=== PATIENT | female | born 1940 | race Caucasian/White ===

== ENCOUNTER 2018-04-07 06:57 | Inpatient (IN) | payer MEDICARE, OTHER | END 2018-04-10 15:30 | LOC: ER 06:57 → ED HOLD 09:12 → ORTHO 4S 11:45 | DX: S82.142A Displaced bicondylar fracture of left tibia, initial encounter for closed fracture (principal); N39.0 Urinary tract infection, site not specified; E53.8 Deficiency of other specified B group vitamins ==

== ENCOUNTER 2018-04-28 04:32 | Emergency (ER) | payer MEDICARE, OTHER ==
[~2018-04-28] VITALS: Ht 162.6 cm; Wt 70.0 kg
[~2018-04-28 04:32] MED LIST: ALLO100T PO; AMLO2.5T2 PO; APIX5TAB3 PO; ATI1T PO; ATOR10TA87 PO; CEPH500C2 PO; DILT240C52 PO; EZET10TA13 PO; FURO-150 PO
--- NOTE | 2018-04-28 04:44 | NUR ---
ELYSIA bandage noted to left ankle. Pt states that she fell and fractured left ankle approx two months ago.
[2018-04-28] MEDS ORDERED: normal saline 1000ml 1,000 ML IV ONE ×2 (04:45→07:05)
[2018-04-28 05:29] LABS: BASOPHILS # (AUTO) 0.1 X10'3 (0-0.2); BASOPHILS % (AUTO) 0.6 % (0-1); EOSINOPHILS # (AUTO) 0.1 X10'3 (0-0.9); EOSINOPHILS % (AUTO) 0.9 % (0-6); HEMATOCRIT 35.6 % (35.0-45.0); HEMOGLOBIN 11.4 g/dl (12.0-16.0); LYMPHOCYTES # (AUTO) 1.1 X10'3 (1.1-4.8); LYMPHOCYTES % (AUTO) 14.1 % (21-51); MEAN CORPUSCULAR HEMOGLOBIN 33.6 PG (27.0-31.0); MEAN CORPUSCULAR HGB CONC 32.1 g/dL (33.0-36.5); MEAN CORPUSCULAR VOLUME 104.7 FL (78-98); MEAN PLATELET VOLUME 7.5 FL (7.4-10.4); MONOCYTES # (AUTO) 0.8 X10'3 (0-0.9); MONOCYTES % (AUTO) 10.1 % (2-12); NEUTROPHILS # (AUTO) 5.9 X10'3 (1.8-7.7); NEUTROPHILS % (AUTO) 74.3 % (42-75); PLATELET COUNT 422 X10'3 (140-440); RED CELL DISTRIBUTION WIDTH 15.7 % (11.5-14.5); WHITE BLOOD COUNT 7.9 X10'3 (4.5-11.0)
[2018-04-28 05:43] LABS: INR 1.3 INR; PARTIAL THROMBOPLASTIN TIME 37 SECONDS (22-32); PROTHROMBIN TIME 12.7 SECONDS (9.0-12.0)
[2018-04-28 05:44] LABS: ALANINE AMINOTRANSFERASE 34 U/L (12-78); ALBUMIN 2.4 G/DL (3.4-5.0); ALBUMIN/GLOBULIN RATIO 0.6 (1.1-1.5); ALKALINE PHOSPHATASE 180 IU/L (46-116); ANION GAP 9 (8-16); ASPARTATE AMINO TRANSFERASE 47 U/L (10-37); BILIRUBIN,TOTAL 0.6 MG/DL (0.1-1.0); BLOOD UREA NITROGEN 16 MG/DL (7-18); BUN/CREATININE RATIO 17.4 (6.6-38.0); CALCIUM 9.2 MG/DL (8.5-10.1); CHLORIDE 102 MMOL/L (99-107); CREATININE 0.92 MG/DL (0.40-0.90); GLUCOSE 87 MG/DL (70-104); POTASSIUM 3.1 MMOL/L (3.5-5.1); SODIUM 141 MMOL/L (135-145); TOTAL CARBON DIOXIDE 30.5 MMOL/L (24-32); TOTAL PROTEIN 6.3 G/DL (6.4-8.2); eGFR 59 ML/MIN
[2018-04-28] MEDS ORDERED: lactulose 20gm/30ml cup PO ONE (07:05)
[2018-04-28 07:16] LABS: CLARITY,URINE CLEAR (Clear); COLOR,URINE YELLOW (Yellow); GLUCOSE, URINE NEGATIVE (Neg); KETONES,URINE 15 mg/dl (Neg); LEUKOCYTE ESTERASE ,URINE NEGATIVE (Neg); NITRITES, URINE NEGATIVE (Neg); OCCULT BLOOD,URINE NEGATIVE (Neg); PH,URINE 6.5 (4.8-8.0); PROTEIN,URINE NEGATIVE (Neg); UROBILINOGEN,URINE 0.2 E.U/dL (0.2-1.0)
[2018-04-28 07:21] LABS: UA COLLECTION TYPE STRAIGHT CATH
[2018-04-28 07:40] VITALS: BP 133/78
--- NOTE | 2018-04-28 08:38 | NUR ---
PT SHLOMO SAHNI [phone] PT FAMILIA MAY [phone]
== END 2018-04-28 13:04 ==
LOC: ER 04:33
DX: K59.00 Constipation, unspecified (principal); R10.9 Unspecified abdominal pain; K64.4 Residual hemorrhoidal skin tags; I25.10 Atherosclerotic heart disease of native coronary artery without angina pectoris; I10 Essential (primary) hypertension; M10.9 Gout, unspecified; Z79.899 Other long term (current) drug therapy
CPT/HCPCS: 36415; 71045; 74176; 80053; 81003; 84145; 85025; 85610; 85730; 86885; 86900; 86901; 93005; 99284; J7030

== ENCOUNTER 2023-09-11 20:10 | Inpatient (IN) | payer MEDICARE, OTHER ==
[~2023-09-11] VITALS: Ht 162.6 cm; Wt 74.0 kg
[~2023-09-11 20:10] MED LIST changes: -ALLO100T PO; +ALLO100T25 PO; -AMLO2.5T2 PO; -APIX5TAB3 PO; -ATI1T PO; -ATOR10TA87 PO; +ATOR40TA71 PO; -CEPH500C2 PO; +CLOP75TA34 PO; +COR3.125T PO; -DILT240C52 PO; -EZET10TA13 PO; -FURO-150 PO
[2023-09-11 20:49] LABS: BASOPHILS % (AUTO) 0.5 % (0-1); EOSINOPHILS # (AUTO) 0.1 X10'3 (0-0.9); EOSINOPHILS % (AUTO) 0.8 % (0-6); HEMATOCRIT 34.8 % (35.0-45.0); HEMOGLOBIN 10.9 g/dl (12.0-16.0); LYMPHOCYTES # (AUTO) 0.8 X10'3 (1.1-4.8); LYMPHOCYTES % (AUTO) 8.9 % (21-51); MEAN CORPUSCULAR HEMOGLOBIN 34.5 PG (27.0-31.0); MEAN CORPUSCULAR HGB CONC 31.3 g/dL (33.0-36.5); MEAN PLATELET VOLUME 8.1 FL (7.4-10.4); MONOCYTES # (AUTO) 0.8 X10'3 (0-0.9); MONOCYTES % (AUTO) 9.3 % (2-12); NEUTROPHILS # (AUTO) 6.8 X10'3 (1.8-7.7); NEUTROPHILS % (AUTO) 80.5 % (42-75); PLATELET COUNT 157 X10'3 (140-440); RED BLOOD COUNT 3.16 X10'6 (4.20-5.60); RED CELL DISTRIBUTION WIDTH 27.2 % (11.5-14.5); WHITE BLOOD COUNT 8.5 X10'3 (4.5-11.0)
[2023-09-11 20:54] LABS: ANION GAP 6 (8-16); BLOOD UREA NITROGEN 48 MG/DL (7-18); BUN/CREATININE RATIO 36.4 (10.0-20.0); CALCIUM 9.1 MG/DL (8.5-10.1); CHLORIDE 110 MMOL/L (99-107); CREATININE 1.32 MG/DL (0.40-0.90); GLUCOSE 110 MG/DL (70-104); MAGNESIUM 2.5 MG/DL (1.5-2.4); SODIUM 142 MMOL/L (135-145); TOTAL CARBON DIOXIDE 25.7 MMOL/L (24-32); eCRCL 27 ML/MIN; eGFR 38 ML/MIN
[2023-09-11 20:55] LABS: POTASSIUM 5.2 MMOL/L (3.5-5.1)
[2023-09-11 21:21] LABS: ANISOCYTOSIS 3+; PLATELET ESTIMATE NORMAL
[2023-09-11 21:25] LABS: POLYCHROMASIA FEW; SCHISTOCYTES FEW; TEAR DROP CELLS FEW
[2023-09-11 21:30] LABS: PRO BRAIN NATRIURETIC PEPTIDE > 30000 PG/ML (0-450)
[2023-09-11] MEDS: furosemide 10 MG/1 ML 10ml inj IV ONE (22:09)
[2023-09-11] MEDS ORDERED: EZET10TA6 PO (22:15)
[2023-09-11] MEDS ORDERED: DAPA10TA PO (22:16)
[2023-09-11] MEDS ORDERED: LANS30TA10 PO (22:17)
[2023-09-11] MEDS ORDERED: ONDA-243 PO (22:17)
[2023-09-11] MEDS ORDERED: SENN-302 PO (22:18)
[2023-09-11] MEDS ORDERED: ALLO300T8 PO (22:19)
[2023-09-11] MEDS ORDERED: DILT240C47 PO (22:19)
[2023-09-11] MEDS ORDERED: METO-395 PO (22:19)
[2023-09-11] MEDS ORDERED: CLOP75TA34 PO (22:20)
[2023-09-11] MEDS ORDERED: CARV3.12 PO (22:21)
[2023-09-11] MEDS ORDERED: ATOR40TA PO (22:23)
[2023-09-11] MEDS ORDERED: ALLO100T PO (22:23)
[2023-09-12] VITALS (8 sets, daily range): BP systolic 91–126; BP diastolic 39–76; PULSE 71–105; RESP 15–28; TEMP 96.8–98; O2SAT 93–100
[2023-09-12] MEDS ORDERED: morphine 2 MG/ML inj. syringe IV PRN (00:30)
[2023-09-12] MEDS ORDERED: magnesium sulf-water 4G/100mL 100 ML IV PRN (00:30)
[2023-09-12] MEDS ORDERED: mag hydrox/Alum hydrox/simeth 30ml oral suspension PO PRN (00:30)
[2023-09-12] MEDS ORDERED: magnesium Cl slow-release 64mg tablet PO PRN (00:30)
[2023-09-12] MEDS ORDERED: magnesium sulf-water 2g/50mL 50 ML IV PRN (00:30)
[2023-09-12] MEDS ORDERED: potassium Cl 20 mEq SR tablet PO PRN ×2 (00:30)
[2023-09-12] MEDS ORDERED: potassium Cl 40MEQ/1/2NS 520ml 520 ML IV PRN (00:30)
[2023-09-12] MEDS ORDERED: acetaminophen 325mg tablet PO PRN (00:30)
[2023-09-12] MEDS ORDERED: ipratropium/albuterol 3ml nebule NEB PRN (00:30)
[2023-09-12] MEDS: furosemide 10 MG/1 ML 10ml inj IV ONE (01:23)
[2023-09-12] MEDS: CefTRIAXone/D5W-Rocephin 1gm 50 ML IV SCH (01:23)
[2023-09-12] MEDS: guaiFENesin ER 600mg tablet PO SCH (01:23)
[2023-09-12 01:26] LABS: THYROID STIMULATING HORMONE 5.96 ulU/ml (0.34-4.50)
[2023-09-12 01:52] LABS: BILIRUBIN,URINE NEGATIVE (Neg); CLARITY,URINE CLEAR (Clear); COLOR,URINE YELLOW (Yellow); GLUCOSE, URINE 100 mg/dl (Neg); KETONES,URINE NEGATIVE (Neg); LEUKOCYTE ESTERASE ,URINE TRACE (Neg); OCCULT BLOOD,URINE NEGATIVE (Neg); PH,URINE 5.5 (4.8-8.0); PROTEIN,URINE NEGATIVE (Neg); UROBILINOGEN,URINE 0.2 E.U/dL (0.2-1.0)
[2023-09-12 02:03] LABS: NITRITES, URINE NEGATIVE (Neg); UA COLLECTION TYPE CLN CATCH MIDSTREAM
[2023-09-12 02:07] LABS: BACTERIA,URINE FEW /HPF (Neg); MUCUS STRANDS MODERATE /LPF (Neg); RBC,URINE 0-2 /HPF (0-2); SQUAMOUS EPITHELIAL CELL,UR FEW /LPF (FEW)
[2023-09-12 02:08] LABS: TRANSITIONAL EPI CELLS,URINE MODERATE /HPF; YEAST FEW /HPF (NEGATIVE)
[2023-09-12] MEDS: azithromycin/NS 500mg/250ml 250 ML IV SCH (02:11)
[2023-09-12] MEDS ORDERED: metoprolol succinate 25mg (24-HOUR) SR. Tablet PO SCH (08:00)
[2023-09-12] MEDS: MULTIVIT-MIN/FERROUS GLUCONATE 9 MG/15 ML LIQUID PO SCH (08:00)
[2023-09-12] MEDS: diltiazem CD 120mg capsule (once-daily) PO SCH (08:00)
[2023-09-12] MEDS: pantoprazole 40mg Tablet.DR PO SCH (08:00)
[2023-09-12] MEDS: K and/or MAG REPLACEMENT MC SCH (08:00)
[2023-09-12] MEDS: clopidogrel 75mg tablet PO SCH (08:00)
[2023-09-12] MEDS ORDERED: allopurinol 300 MG tablet PO SCH (08:00)
[2023-09-12] MEDS: atorvastatin 20mg tablet PO SCH (08:00)
[2023-09-12] MEDS: allopurinol 100mg tablet PO SCH (08:00)
[2023-09-12] MEDS: carVEDilol 3.125mg tablet PO SCH (08:00)
[2023-09-12] MEDS: DAPAGLIFLOZIN 10MG TABLET PO SCH (08:00)
[2023-09-12] MEDS: heparin, porcine 5000 units/ml vial SQ SCH (08:00)
[2023-09-12] MEDS: docusate sod 100mg capsule PO SCH (08:00)
[2023-09-12] MEDS: ondansetron/PF 4mg/2ml inj IV PRN (09:02)
[2023-09-12] MEDS: furosemide 10 MG/1 ML 10ml inj IV SCH (09:13)
[2023-09-12 10:09] LABS: MAGNESIUM 2.4 MG/DL (1.5-2.4)
[2023-09-12 10:12] LABS: POTASSIUM 5.1 MMOL/L (3.5-5.1)
[2023-09-13] VITALS (11 sets, daily range): BP systolic 88–125; BP diastolic 43–57; PULSE 57–94; RESP 16–29; TEMP 96.7–98.6; O2SAT 86–100
[2023-09-13] MEDS: aspirin 81mg tab.chew PO ONE (01:16)
[2023-09-13 04:34] LABS: EOSINOPHILS # (AUTO) 0.1 X10'3 (0-0.9); HEMOGLOBIN 10.3 g/dl (12.0-16.0); LYMPHOCYTES # (AUTO) 0.9 X10'3 (1.1-4.8); MONOCYTES # (AUTO) 0.8 X10'3 (0-0.9); NEUTROPHILS # (AUTO) 4.6 X10'3 (1.8-7.7); RED BLOOD COUNT 2.97 X10'6 (4.20-5.60); WHITE BLOOD COUNT 6.4 X10'3 (4.5-11.0)
[2023-09-13 04:36] LABS: BASOPHILS % (AUTO) 0.8 % (0-1); HEMATOCRIT 32.9 % (35.0-45.0); LYMPHOCYTES % (AUTO) 14.4 % (21-51); MEAN CORPUSCULAR HEMOGLOBIN 34.6 PG (27.0-31.0); MEAN CORPUSCULAR HGB CONC 31.2 g/dL (33.0-36.5); MEAN CORPUSCULAR VOLUME 110.8 FL (78-98); MEAN PLATELET VOLUME 8.4 FL (7.4-10.4); MONOCYTES % (AUTO) 12.4 % (2-12); NEUTROPHILS % (AUTO) 71.4 % (42-75); PLATELET COUNT 128 X10'3 (140-440); RED CELL DISTRIBUTION WIDTH 27.8 % (11.5-14.5)
[2023-09-13 04:44] LABS: ALANINE AMINOTRANSFERASE 11 U/L (12-78); ALBUMIN 2.6 G/DL (3.4-5.0); ALBUMIN/GLOBULIN RATIO 0.9 (1.1-1.5); ALKALINE PHOSPHATASE 217 IU/L (46-116); ANION GAP 10 (8-16); ASPARTATE AMINO TRANSFERASE 23 U/L (10-37); BILIRUBIN,TOTAL 1.5 MG/DL (0.1-1.0); BLOOD UREA NITROGEN 49 MG/DL (7-18); BUN/CREATININE RATIO 35.8 (10.0-20.0); CALCIUM 8.8 MG/DL (8.5-10.1); CHLORIDE 109 MMOL/L (99-107); CREATININE 1.37 MG/DL (0.40-0.90); GLUCOSE 89 MG/DL (70-104); MAGNESIUM 2.3 MG/DL (1.5-2.4); POTASSIUM 4.4 MMOL/L (3.5-5.1); SODIUM 146 MMOL/L (135-145); TOTAL CARBON DIOXIDE 26.9 MMOL/L (24-32); TOTAL PROTEIN 5.6 G/DL (6.4-8.2); eCRCL 26 ML/MIN; eGFR 37 ML/MIN
[2023-09-13 05:08] LABS: PLATELET ESTIMATE DECREASED; TOTAL CELLS COUNTED 100
[2023-09-13 05:09] LABS: ANISOCYTOSIS 3+; SCHISTOCYTES FEW; TEAR DROP CELLS FEW
[2023-09-13] MEDS: aspirin 81mg, enteric-coated 1 TAB TABLET.DR PO SCH (08:00)
[2023-09-14] VITALS (8 sets, daily range): BP systolic 114–159; BP diastolic 44–66; PULSE 53–82; RESP 17–23; TEMP 96.7–98.7; O2SAT 96–99
[2023-09-14] MEDS: morphine 2 MG/ML inj. syringe IV PRN (04:01)
[2023-09-14 06:32] LABS: BASOPHILS % (AUTO) 0.7 % (0-1); EOSINOPHILS # (AUTO) 0.1 X10'3 (0-0.9); EOSINOPHILS % (AUTO) 1.2 % (0-6); HEMATOCRIT 34.1 % (35.0-45.0); HEMOGLOBIN 10.5 g/dl (12.0-16.0); LYMPHOCYTES % (AUTO) 14.8 % (21-51); MEAN CORPUSCULAR HEMOGLOBIN 34.5 PG (27.0-31.0); MEAN CORPUSCULAR HGB CONC 30.7 g/dL (33.0-36.5); MEAN CORPUSCULAR VOLUME 112.7 FL (78-98); MEAN PLATELET VOLUME 8.6 FL (7.4-10.4); MONOCYTES # (AUTO) 0.8 X10'3 (0-0.9); MONOCYTES % (AUTO) 12.6 % (2-12); NEUTROPHILS # (AUTO) 4.7 X10'3 (1.8-7.7); NEUTROPHILS % (AUTO) 70.7 % (42-75); PLATELET COUNT 128 X10'3 (140-440); RED BLOOD COUNT 3.03 X10'6 (4.20-5.60); RED CELL DISTRIBUTION WIDTH 28.4 % (11.5-14.5); WHITE BLOOD COUNT 6.6 X10'3 (4.5-11.0)
[2023-09-14 06:55] LABS: ALANINE AMINOTRANSFERASE 7 U/L (12-78); ALBUMIN 2.7 G/DL (3.4-5.0); ALBUMIN/GLOBULIN RATIO 0.9 (1.1-1.5); ALKALINE PHOSPHATASE 202 IU/L (46-116); ANION GAP 13 (8-16); ASPARTATE AMINO TRANSFERASE 22 U/L (10-37); BILIRUBIN,TOTAL 1.3 MG/DL (0.1-1.0); BLOOD UREA NITROGEN 56 MG/DL (7-18); BUN/CREATININE RATIO 30.8 (10.0-20.0); CALCIUM 8.9 MG/DL (8.5-10.1); CHLORIDE 108 MMOL/L (99-107); CREATININE 1.82 MG/DL (0.40-0.90); GLUCOSE 85 MG/DL (70-104); MAGNESIUM 2.3 MG/DL (1.5-2.4); POTASSIUM 4.6 MMOL/L (3.5-5.1); SODIUM 145 MMOL/L (135-145); TOTAL CARBON DIOXIDE 23.8 MMOL/L (24-32); TOTAL PROTEIN 5.7 G/DL (6.4-8.2); eCRCL 20 ML/MIN; eGFR 26 ML/MIN
[2023-09-14 09:02] LABS: PLATELET ESTIMATE DECREASED
[2023-09-14 09:03] LABS: ANISOCYTOSIS 3+; TEAR DROP CELLS FEW
[2023-09-14 09:04] LABS: POLYCHROMASIA FEW
[2023-09-14] MEDS ORDERED: ASPI81TA30 PO (11:38)
[2023-09-14] MEDS: lactose-reduced food (Ensure Enlive) - 237ml bottle PO SCH (18:00)
[2023-09-15] VITALS (11 sets, daily range): BP systolic 98–122; BP diastolic 37–66; PULSE 70–104; RESP 16–24; TEMP 97.4–98.6; O2SAT 92–100
[2023-09-15 14:00] LABS: ABG BASE EXCESS -5.4 mmol/L (-2.0-2.0); ABG HCO3 24.4 mmol/L (22.0-26.0); ABG OXYGEN SATURATION 86.6 % (94-97); ABG PH (T) 7.158 (7.350-7.450); ABG PO2 (T) 57.8 mmHg (75.0-100.0); ALLEN'S TEST POSITIVE; FCOHb 0.9 % (0.0-3.9); FHHb 13.2 % (0.0-5.0); FLOW 3 L/min; FMetHb 0.3 % (0.0-1.5); FO2Hb 85.6 % (94-97); MODE NASAL CANNULA; PATIENT TEMPERATURE 36.7; TOTAL HEMOGLOBIN 11.8 G/dl (12.0-16.0)
[2023-09-15 16:48] LABS: ABG BASE EXCESS -4.8 mmol/L (-2.0-2.0); ABG HCO3 22.5 mmol/L (22.0-26.0); ABG OXYGEN SATURATION 98.2 % (94-97); ABG PCO2 (T) 50.2 mmHg (32.0-45.0); ABG PH (T) 7.266 (7.350-7.450); ABG PO2 (T) 107.9 mmHg (75.0-100.0); ALLEN'S TEST POSITIVE; FCOHb 0.9 % (0.0-3.9); FHHb 1.8 % (0.0-5.0); FMetHb 0.3 % (0.0-1.5); MODE BiPAP; PATIENT TEMPERATURE 36.5; TOTAL HEMOGLOBIN 11.6 G/dl (12.0-16.0)
[2023-09-15] MEDS: diltiazem CD 120mg capsule (once-daily) PO SCH (20:24)
[2023-09-15] MEDS: carVEDilol 3.125mg tablet PO SCH (20:24)
[2023-09-15 21:01] LABS: ABG BASE EXCESS -2.5 mmol/L (-2.0-2.0); ABG HCO3 24.4 mmol/L (22.0-26.0); ABG OXYGEN SATURATION 96.2 % (94-97); ABG PCO2 (T) 50.4 mmHg (32.0-45.0); ABG PO2 (T) 84.1 mmHg (75.0-100.0); ALLEN'S TEST Modified; FCOHb 0.9 % (0.0-3.9); FHHb 3.8 % (0.0-5.0); FMetHb 0.3 % (0.0-1.5); MODE BIPAP; PATIENT TEMPERATURE 36.5; RESPIRATORY RATE 10 b/min; TOTAL HEMOGLOBIN 11.4 G/dl (12.0-16.0)
[2023-09-16] VITALS (16 sets, daily range): BP systolic 99–108; BP diastolic 48–54; PULSE 59–85; RESP 11–24; TEMP 96.7–97.8; O2SAT 93–100
[2023-09-16 07:23] LABS: ALANINE AMINOTRANSFERASE 6 U/L (12-78); ALBUMIN 2.5 G/DL (3.4-5.0); ALBUMIN/GLOBULIN RATIO 0.9 (1.1-1.5); ALKALINE PHOSPHATASE 177 IU/L (46-116); ANION GAP 8 (8-16); ASPARTATE AMINO TRANSFERASE 19 U/L (10-37); BILIRUBIN,TOTAL 0.9 MG/DL (0.1-1.0); BLOOD UREA NITROGEN 72 MG/DL (7-18); BUN/CREATININE RATIO 34.3 (10.0-20.0); CALCIUM 8.4 MG/DL (8.5-10.1); CHLORIDE 111 MMOL/L (99-107); GLUCOSE 85 MG/DL (70-104); MAGNESIUM 2.3 MG/DL (1.5-2.4); POTASSIUM 4.2 MMOL/L (3.5-5.1); SODIUM 145 MMOL/L (135-145); TOTAL CARBON DIOXIDE 25.7 MMOL/L (24-32); TOTAL PROTEIN 5.2 G/DL (6.4-8.2); eCRCL 17 ML/MIN; eGFR 22 ML/MIN
[2023-09-16 07:24] LABS: BASOPHILS % (AUTO) 0.4 % (0-1); HEMATOCRIT 32.2 % (35.0-45.0); LYMPHOCYTES # (AUTO) 0.7 X10'3 (1.1-4.8); LYMPHOCYTES % (AUTO) 14.2 % (21-51); MEAN CORPUSCULAR HEMOGLOBIN 34.5 PG (27.0-31.0); MEAN CORPUSCULAR VOLUME 111.2 FL (78-98); MEAN PLATELET VOLUME 8.6 FL (7.4-10.4); MONOCYTES # (AUTO) 0.5 X10'3 (0-0.9); MONOCYTES % (AUTO) 11.3 % (2-12); NEUTROPHILS # (AUTO) 3.6 X10'3 (1.8-7.7); NEUTROPHILS % (AUTO) 73.1 % (42-75); PLATELET COUNT 105 X10'3 (140-440); RED BLOOD COUNT 2.89 X10'6 (4.20-5.60); WHITE BLOOD COUNT 4.9 X10'3 (4.5-11.0)
[2023-09-16 09:50] LABS: ABG BASE EXCESS -1.2 mmol/L (-2.0-2.0); ABG HCO3 24.1 mmol/L (22.0-26.0); ABG OXYGEN SATURATION 93.5 % (94-97); ABG PCO2 (T) 40.5 mmHg (32.0-45.0); ABG PH (T) 7.388 (7.350-7.450); ABG PO2 (T) 63.3 mmHg (75.0-100.0); ALLEN'S TEST POSITIVE; FCOHb 1.1 % (0.0-3.9); FHHb 6.4 % (0.0-5.0); FMetHb 0.3 % (0.0-1.5); FO2Hb 92.2 % (94-97); MODE MASK - BIPAP; PEEP 5 cm H2O; RESPIRATORY RATE 10 b/min
[2023-09-16] MEDS: dextrose 5%-normal saline 1,000 ML IV SCH (11:37)
[2023-09-16] MEDS: bisacodyl 10mg suppository rectal RC PRN (17:48)
[2023-09-17] VITALS (11 sets, daily range): BP systolic 91–113; BP diastolic 49–61; PULSE 71–92; RESP 16–28; TEMP 96.6–97.9; O2SAT 81–100
[2023-09-17 05:42] LABS: EOSINOPHILS # (AUTO) 0.1 X10'3 (0-0.9); HEMOGLOBIN 10.7 g/dl (12.0-16.0); WHITE BLOOD COUNT 8.2 X10'3 (4.5-11.0)
[2023-09-17 05:46] LABS: BASOPHILS % (AUTO) 0.3 % (0-1); EOSINOPHILS % (AUTO) 0.8 % (0-6); HEMATOCRIT 34.7 % (35.0-45.0); LYMPHOCYTES # (AUTO) 0.7 X10'3 (1.1-4.8); LYMPHOCYTES % (AUTO) 9.1 % (21-51); MEAN CORPUSCULAR HEMOGLOBIN 34.6 PG (27.0-31.0); MEAN CORPUSCULAR HGB CONC 30.7 g/dL (33.0-36.5); MEAN CORPUSCULAR VOLUME 112.7 FL (78-98); MEAN PLATELET VOLUME 8.8 FL (7.4-10.4); MONOCYTES # (AUTO) 0.9 X10'3 (0-0.9); MONOCYTES % (AUTO) 11.5 % (2-12); NEUTROPHILS # (AUTO) 6.5 X10'3 (1.8-7.7); NEUTROPHILS % (AUTO) 78.3 % (42-75); PLATELET COUNT 115 X10'3 (140-440); RED BLOOD COUNT 3.08 X10'6 (4.20-5.60)
[2023-09-17 06:10] LABS: ALANINE AMINOTRANSFERASE 12 U/L (12-78); ALBUMIN 2.5 G/DL (3.4-5.0); ALBUMIN/GLOBULIN RATIO 0.8 (1.1-1.5); ALKALINE PHOSPHATASE 180 IU/L (46-116); ANION GAP 6 (8-16); ASPARTATE AMINO TRANSFERASE 22 U/L (10-37); BILIRUBIN,TOTAL 0.9 MG/DL (0.1-1.0); BLOOD UREA NITROGEN 72 MG/DL (7-18); BUN/CREATININE RATIO 34.4 (10.0-20.0); CALCIUM 8.2 MG/DL (8.5-10.1); CHLORIDE 110 MMOL/L (99-107); CREATININE 2.09 MG/DL (0.40-0.90); GLUCOSE 155 MG/DL (70-104); POTASSIUM 4.1 MMOL/L (3.5-5.1); SODIUM 143 MMOL/L (135-145); TOTAL CARBON DIOXIDE 27.3 MMOL/L (24-32); TOTAL PROTEIN 5.5 G/DL (6.4-8.2); eCRCL 17 ML/MIN; eGFR 23 ML/MIN
[2023-09-17 07:00] LABS: ANISOCYTOSIS 3+; PLATELET ESTIMATE DECREASED; TOTAL CELLS COUNTED 100
[2023-09-18] VITALS (16 sets, daily range): BP systolic 88–104; BP diastolic 45–55; PULSE 68–78; RESP 13–25; TEMP 97.6–98.6; O2SAT 89–100
[2023-09-18 13:04] LABS: ABG BASE EXCESS -1.3 mmol/L (-2.0-2.0); ABG HCO3 25.7 mmol/L (22.0-26.0); ABG OXYGEN SATURATION 99.2 % (94-97); ABG PCO2 (T) 52.5 mmHg (32.0-45.0); ABG PH (T) 7.304 (7.350-7.450); ABG PO2 (T) 145.4 mmHg (75.0-100.0); ALLEN'S TEST POSITIVE; FCOHb 0.7 % (0.0-3.9); FHHb 0.8 % (0.0-5.0); FLOW 4 L/min; FMetHb 0.3 % (0.0-1.5); FO2Hb 98.2 % (94-97); MODE NASAL CANNULA; PATIENT TEMPERATURE 36.4
[2023-09-19] VITALS (11 sets, daily range): BP systolic 98–104; BP diastolic 48–63; PULSE 67–79; RESP 16–22; TEMP 97.2–97.8; O2SAT 90–100
[2023-09-19] MEDS: metoprolol succinate 25mg (24-HOUR) SR. Tablet PO SCH (08:00)
[2023-09-19] MEDS: guaiFENesin 200 MG/10 ML oral syrup UD cup PO SCH (08:00)
[2023-09-19] MEDS: docusate sodium 100mg/10ml UD cup PO SCH (08:00)
[2023-09-19] MEDS: aspirin 81mg tab.chew PO SCH (08:00)
[2023-09-19 10:46] LABS: ALANINE AMINOTRANSFERASE 8 U/L (12-78); ALBUMIN 2.3 G/DL (3.4-5.0); ALBUMIN/GLOBULIN RATIO 0.7 (1.1-1.5); ALKALINE PHOSPHATASE 176 IU/L (46-116); ANION GAP 7 (8-16); ASPARTATE AMINO TRANSFERASE 37 U/L (10-37); BILIRUBIN,TOTAL 0.8 MG/DL (0.1-1.0); BLOOD UREA NITROGEN 74 MG/DL (7-18); BUN/CREATININE RATIO 38.3 (10.0-20.0); CALCIUM 8.3 MG/DL (8.5-10.1); CHLORIDE 108 MMOL/L (99-107); CREATININE 1.93 MG/DL (0.40-0.90); GLUCOSE 139 MG/DL (70-104); POTASSIUM 4.2 MMOL/L (3.5-5.1); SODIUM 138 MMOL/L (135-145); TOTAL CARBON DIOXIDE 22.7 MMOL/L (24-32); TOTAL PROTEIN 5.4 G/DL (6.4-8.2); eCRCL 19 ML/MIN; eGFR 25 ML/MIN
[2023-09-19 12:36] LABS: BASOPHILS % (AUTO) 0.4 % (0-1); EOSINOPHILS # (AUTO) 0.1 X10'3 (0-0.9); EOSINOPHILS % (AUTO) 1.9 % (0-6); HEMATOCRIT 35.5 % (35.0-45.0); HEMOGLOBIN 10.9 g/dl (12.0-16.0); LYMPHOCYTES # (AUTO) 0.8 X10'3 (1.1-4.8); LYMPHOCYTES % (AUTO) 10.8 % (21-51); MEAN CORPUSCULAR HEMOGLOBIN 35.5 PG (27.0-31.0); MEAN CORPUSCULAR HGB CONC 30.7 g/dL (33.0-36.5); MEAN CORPUSCULAR VOLUME 115.5 FL (78-98); MEAN PLATELET VOLUME 9.6 FL (7.4-10.4); MONOCYTES # (AUTO) 0.8 X10'3 (0-0.9); MONOCYTES % (AUTO) 10.7 % (2-12); NEUTROPHILS % (AUTO) 76.2 % (42-75); PLATELET COUNT 104 X10'3 (140-440); RED BLOOD COUNT 3.07 X10'6 (4.20-5.60); RED CELL DISTRIBUTION WIDTH 29.2 % (11.5-14.5); WHITE BLOOD COUNT 7.8 X10'3 (4.5-11.0)
[2023-09-20] VITALS (7 sets, daily range): BP systolic 89–140; BP diastolic 42–110; PULSE 66–85; RESP 16–26; TEMP 97.5; O2SAT 92–98
[2023-09-20] MEDS: HYDROmorphone inj. 0.5 MG/0.5 ML DISP.SYRIN IV PRN (00:01)
[2023-09-20 06:40] LABS: BASOPHILS % (AUTO) 0.3 % (0-1); EOSINOPHILS # (AUTO) 0.1 X10'3 (0-0.9); EOSINOPHILS % (AUTO) 0.9 % (0-6); HEMOGLOBIN 10.7 g/dl (12.0-16.0); LYMPHOCYTES % (AUTO) 10.4 % (21-51); MEAN CORPUSCULAR HEMOGLOBIN 34.9 PG (27.0-31.0); MEAN CORPUSCULAR HGB CONC 29.8 g/dL (33.0-36.5); MEAN PLATELET VOLUME 8.6 FL (7.4-10.4); MONOCYTES # (AUTO) 1.3 X10'3 (0-0.9); MONOCYTES % (AUTO) 13.5 % (2-12); NEUTROPHILS # (AUTO) 7.1 X10'3 (1.8-7.7); NEUTROPHILS % (AUTO) 74.9 % (42-75); PLATELET COUNT 102 X10'3 (140-440); RED BLOOD COUNT 3.07 X10'6 (4.20-5.60); RED CELL DISTRIBUTION WIDTH 29.4 % (11.5-14.5); WHITE BLOOD COUNT 9.4 X10'3 (4.5-11.0)
[2023-09-20 07:01] LABS: HEMATOCRIT 34.3 % (35.0-45.0); MEAN CORPUSCULAR VOLUME 111.8 FL (78-98)
[2023-09-20] MEDS: normal saline 500ml IV soln 500 ML IV ONE ×2 (08:48→08:49)
[2023-09-20] MEDS ORDERED: LORazepam 0.5 MG tablet PO PRN (11:05)
[2023-09-20] MEDS ORDERED: hyoscyamine 0.125mg TAB.SUBL SL PRN (11:05)
[2023-09-20] MEDS ORDERED: furosemide 20MG tablet PO PRN (11:05)
[2023-09-20 11:34] LABS: ALANINE AMINOTRANSFERASE 11 U/L (12-78); ALBUMIN/GLOBULIN RATIO 0.6 (1.1-1.5); ALKALINE PHOSPHATASE 182 IU/L (46-116); ANION GAP 14 (8-16); ASPARTATE AMINO TRANSFERASE 30 U/L (10-37); BILIRUBIN,TOTAL 0.9 MG/DL (0.1-1.0); BLOOD UREA NITROGEN 71 MG/DL (7-18); BUN/CREATININE RATIO 35.3 (10.0-20.0); CALCIUM 8.1 MG/DL (8.5-10.1); CHLORIDE 108 MMOL/L (99-107); CREATININE 2.01 MG/DL (0.40-0.90); GLUCOSE 104 MG/DL (70-104); POTASSIUM 4.7 MMOL/L (3.5-5.1); SODIUM 138 MMOL/L (135-145); TOTAL CARBON DIOXIDE 16.5 MMOL/L (24-32); TOTAL PROTEIN 5.2 G/DL (6.4-8.2); eCRCL 18 ML/MIN; eGFR 24 ML/MIN
[2023-09-20] MEDS: morphine 10mg/0.5ml (conc. morphine) oral syringe PO PRN (11:46)
== END 2023-09-20 14:49 | disposition hospice, home (50) | DRG 64 ==
LOC: ER 20:12 → ED HOLD 09-12 00:34 → PCU 3S 09-12 08:05
PROVIDERS: ADMIT Surgery Surgical Critical Care; ATTEND Internal Medicine
PROC: 05HC33Z Insertion of Infusion Device into Left Basilic Vein, Percutaneous Approach (ICD-10-PCS; 2023-09-12)
PROC: 5A09357 Assistance with Respiratory Ventilation, Less than 24 Consecutive Hours, Continuous Positive Airway Pressure (ICD-10-PCS; principal; 2023-09-15)
PROC: 5A09357 Assistance with Respiratory Ventilation, Less than 24 Consecutive Hours, Continuous Positive Airway Pressure (ICD-10-PCS; 2023-09-16)
PROC: 5A09357 Assistance with Respiratory Ventilation, Less than 24 Consecutive Hours, Continuous Positive Airway Pressure (ICD-10-PCS; 2023-09-18)
DX: I63.9 Cerebral infarction, unspecified (principal); G93.41 Metabolic encephalopathy; J96.02 Acute respiratory failure with hypercapnia; I50.43 Acute on chronic combined systolic (congestive) and diastolic (congestive) heart failure; N17.9 Acute kidney failure, unspecified; I13.0 Hypertensive heart and chronic kidney disease with heart failure and stage 1 through stage 4 chronic kidney disease, or unspecified chronic kidney disease; Z66 Do not resuscitate; E11.22 Type 2 diabetes mellitus with diabetic chronic kidney disease; N18.30 Chronic kidney disease, stage 3 unspecified; E87.8 Other disorders of electrolyte and fluid balance, not elsewhere classified; E87.5 Hyperkalemia; E11.65 Type 2 diabetes mellitus with hyperglycemia; I25.10 Atherosclerotic heart disease of native coronary artery without angina pectoris; D53.9 Nutritional anemia, unspecified; I72.8 Aneurysm of other specified arteries; I95.9 Hypotension, unspecified; R29.701 NIHSS score 1; K59.00 Constipation, unspecified; I65.21 Occlusion and stenosis of right carotid artery; E78.5 Hyperlipidemia, unspecified; Z86.73 Personal history of transient ischemic attack (TIA), and cerebral infarction without residual deficits; Z79.01 Long term (current) use of anticoagulants; Z79.899 Other long term (current) drug therapy; Z83.3 Family history of diabetes mellitus; Z51.5 Encounter for palliative care
CPT/HCPCS: 36410; 36415; 36600; 70551; 71045; 76937; 80048; 80053; 81001; 82803; 82948; 83605; 83735; 83880; 84132; 84145; 84443; 84484; 85007; 85008; 85018; 85025; 87040; 87081; 87088; 92508; 92616; 93005; 93308; 94660; 94760; 96374; 97110; 97161; 97530; 99285; A4314; A4615; A4620; A6212; A6213; A6222; A6253; A6449; C1751; G0378; J0456; J0696; J1170; J1644; J1940; J2270; J2405; J7030; J7040; J7042; J7070; J7120